=== PATIENT | female | born 1955 | race American Indian/Alaskan Native ===

== ENCOUNTER 2018-06-11 18:25 | Emergency (ER) | payer MEDICARE ==
[2018-06-11 18:38] VITALS: BP 139/55
[2018-06-11] MEDS ORDERED: TORADOL IM ONE (22:26)
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
== END 2018-06-11 23:12 | disposition home or self-care (01) ==
LOC: ED 18:25
DX: M25.512 Pain in left shoulder (principal); G89.29 Other chronic pain; I10 Essential (primary) hypertension; E11.9 Type 2 diabetes mellitus without complications; M19.90 Unspecified osteoarthritis, unspecified site; J45.909 Unspecified asthma, uncomplicated; Z90.710 Acquired absence of both cervix and uterus; Z90.89 Acquired absence of other organs
CPT/HCPCS: 93005; 93010; 96372; 99282; J1885